=== PATIENT | male | born 2000 ===

== ENCOUNTER → 2024-12-10 11:08 | Outpatient (CLI) | payer OTHER, SELFPAY ==
--- NOTE | 2024-12-10 11:12 | DI.MRI.S_ITS ---
PROCEDURE: MR KNEE LT WO CON INDICATIONS: PAIN IN LEFT KNEE,SUSP MCL VS MENISCAL INJURY TECHNIQUE: Noncontrast sagittal PD fast spin echo and T2 fast spin echo with fat saturation, sagittal 3-D FLASH with fat saturation; coronal T1 spin echo and PD fast spin echo with fat saturation, and axial PD fast spin echo with fat saturation through the knee. COMPARISON: None. FINDINGS: Image quality: Excellent. Menisci: The medial and lateral meniscus are intact. There is mild soft tissues edema anterior to the anterior horn of the medial meniscus (10:10), nonspecific and may represent mild soft tissue contusion. Cruciate ligaments: The anterior and posterior cruciate ligaments appear intact. Medial structures: Low-grade tear of the proximal MCL (13:19). Lateral structures: The lateral collateral ligament, long and short heads of the biceps femoris tendon appear intact. The popliteus tendon appears normal; the popliteofibular ligament appears intact. The posterosuperior and anteroinferior popliteomeniscal fascicles appear intact. The arcuate and fabellofibular ligaments appear intact, on either side of the lateral inferior geniculate artery. Iliotibial band appears normal. Anterior structures: The quadriceps and patellar tendons appear intact. Patellar alignment is normal. No femoral trochlear dysplasia or ventral trochlear prominence. No edema in the infrapatellar fat pad. Bones and cartilage: No bone marrow contusions or fractures. The cartilage of the medial and lateral femorotibial compartments, as well as the patellofemoral compartment, appears normal in thickness. Multiple small bone islands are seen in the distal femur. Joint space: There is physiologic knee joint fluid. No Xiong's cyst. Normal appearing synovial plicae are incidentally noted. IMPRESSION: 1. Mild soft tissue edema anterior to the anterior horn of the medial meniscus, nonspecific and may represent mild soft tissue contusion. No meniscus tear. 2. Low-grade tear of the proximal MCL. Dictated by: Marleni Sarabia M.D. on 12/10/2024 at 13:37 Approved by: -on 12/10/2024 at 13:50 Marleni Sarabia M.D.
== END ==
DX: S83.412A Sprain of medial collateral ligament of left knee, initial encounter (principal); M25.562 Pain in left knee
CPT/HCPCS: 73721